=== PATIENT | male | born 1945 | race Caucasian/White ===

== ENCOUNTER 2018-07-28 09:09 | Emergency (ER) | payer MEDICARE ==
[~2018-07-28] VITALS: Ht 172.7 cm; Wt 88.5 kg
--- NOTE | 2018-07-28 09:10 | NUR ---
patient presented to the ER s/p mechanical fall, -ko, alert and oriented x 3, verbally responsive. connected to the monitor and pulse ox. kept comfortable, on room air, breathing evenly and unlabored. will continue to monitor accordingly.
--- NOTE | 2018-07-28 09:20 | NUR ---
x-ray tech at bedside.
[2018-07-28] MEDS ORDERED: ACETAMINOPHEN ES 500 MG TABLET ONE (09:28)
[2018-07-28] MEDS ORDERED: ACETAMINOPHEN ES 500 MG TABLET PO ONE (09:30)
[2018-07-28 10:03] VITALS: BP 145/86
--- NOTE | 2018-07-28 10:06 | NUR ---
Patient discharged to home in stable condition. Written and verbal after care instructions given. Patient verbalizes understanding of instruction.
== END 2018-07-28 10:05 | disposition home or self-care (01) ==
LOC: ER 09:11
DX: S42.032A Displaced fracture of lateral end of left clavicle, initial encounter for closed fracture (principal); I63.9 Cerebral infarction, unspecified; I12.9 Hypertensive chronic kidney disease with stage 1 through stage 4 chronic kidney disease, or unspecified chronic kidney disease; N18.9 Chronic kidney disease, unspecified; I48.91 Unspecified atrial fibrillation; E78.5 Hyperlipidemia, unspecified; N40.0 Benign prostatic hyperplasia without lower urinary tract symptoms; Z86.73 Personal history of transient ischemic attack (TIA), and cerebral infarction without residual deficits; W19.XXXA Unspecified fall, initial encounter; Y93.89 Activity, other specified; Y92.89 Other specified places as the place of occurrence of the external cause; Y99.8 Other external cause status
CPT/HCPCS: 73030-TC